=== PATIENT | male | born 1960 | race Caucasian/White ===

== ENCOUNTER 2023-10-14 10:55 | Day surgery (SDC) | payer OTHER ==
[2023-10-14] MEDS: IV FLUID CONTINUATION 1,000 ML IV ONE (11:21)
[2023-10-14 11:33] VITALS: TEMP 98.1
[2023-10-14] MEDS: LACTATED RINGERS 1,000 ML BAG IV STA (11:46)
[2023-10-14] MEDS ORDERED: LIDOCAINE 1% INJ 10MG/ML (20 ML MDV) ONE (11:47)
[2023-10-14] MEDS ORDERED: PROPOFOL 10 MG/ML 20 ML VIAL IV ONE (11:47)
--- NOTE | 2023-10-14 12:04 | P.PCN ---
Date of Procedure: 10/14/23 Procedure(s) Performed: BRIEF HISTORY: Patient is a 63-year-old pleasant white male scheduled for an elective colonoscopy as a part of screening for colon cancer/positive Cologuard. PROCEDURE PERFORMED: Colonoscopy with biopsy and snare polypectomy. PREOPERATIVE DIAGNOSIS: Screening for colon cancer/positive Cologuard. IV sedation per Anesthesia. PROCEDURE: After informed consent was obtained, the patient, was brought into the endoscopy unit. IV sedation was administered by Anesthesia under continuous monitoring. Digital rectal examination was normal. Initially the Olympus CF-160 flexible video colonoscope was then inserted in the rectum, gradually advanced into the cecum without any difficulty. Careful examination was performed as the scope was gradually being withdrawn. Ileocecal valve and the appendiceal orifice were visualized and appeared normal. Prep was excellent. Mucosa of the cecum, normal. On the ileocecal valve there were 2 polyps measuring 3 mm in size both of which were removed by cold biopsy. Rest of the ascending colon, transverse colon, descending colon normal. The distal sigmoid colon 3 was a 3 mm and one 7.5 cm pedunculated polyp removed by cold snare polypectomy. Scattered sigmoid diverticulosis seen., sigmoid colon, and rectum appeared normal. Retroflexion was performed in the rectum and no lesions were seen. The patient tolerated the procedure well. IMPRESSION: 3 mm x 2 polyps and ileocecal valve s/p cold biopsy 3 mm and 1.5 cm pedunculated sigmoid colon polyp status post snare polypectomy Scattered sigmoid diverticulosis. RECOMMENDATIONS: Findings of this examination were discussed with the patient as well as his family. He was advised to follow-up with the biopsy results.. If the biopsy reveals adenoma, he can have repeat colonoscopy in 3 years.
[2023-10-14] MEDS ORDERED: LACTATED RINGERS 1,000 ML IV SCH (12:13)
[2023-10-14 12:38] VITALS: BP 105/58; PULSE 60; RESP 20
== END 2023-10-14 12:46 ==
LOC: ORWHC2ENDO 10:55
PROVIDERS: ATTEND Internal Medicine Gastroenterology
DX: C18.7 Malignant neoplasm of sigmoid colon (principal); D12.5 Benign neoplasm of sigmoid colon; K57.30 Diverticulosis of large intestine without perforation or abscess without bleeding; K52.9 Noninfective gastroenteritis and colitis, unspecified; E03.9 Hypothyroidism, unspecified; Z79.890 Hormone replacement therapy; Z79.899 Other long term (current) drug therapy
CPT/HCPCS: 45380; 45385; 88305; 88341; 88342

== ENCOUNTER → 2023-10-20 | Outpatient (CLI) | payer OTHER ==
--- NOTE | 2023-10-20 17:24 | CT ---
EXAMINATION TYPE: CT abdomen pelvis w con CT DLP: 1684 mGycm, Automated exposure control for dose reduction was used. 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 Contrast used:100 mL of Isovue 300 with IV Contrast, (none if empty) Oral contrast used: with Oral Contrast (none if empty) FINDINGS: LOWER CHEST: 4 mm right middle lobe pulmonary nodule. A 6 mm right lower lobe pulmonary nodule. ABDOMEN LIVER: Diffusely hypoattenuating parenchyma. GALLBLADDER AND BILE DUCTS: Unremarkable. PANCREAS: Unremarkable. SPLEEN: Unremarkable. ADRENAL GLANDS: Unremarkable. KIDNEYS AND URETERS: No evidence of hydronephrosis or renal calculus. The ureters are unremarkable. PELVIS BLADDER: Unremarkable REPRODUCTIVE: Prostate is enlarged in size measuring 5.2 cm in transverse dimension. ABDOMEN & PELVIS STOMACH AND BOWEL: No evidence of bowel obstruction. Scattered colonic diverticula. Appendix is briana l. PERITONEUM/RETROPERITONEUM: No evidence of pneumoperitoneum or free fluid. VASCULATURE: No evidence of aortic aneurysm. MUSCULOSKELETAL: No acute osseous abnormalities LYMPH NODES: No gross evidence for lymphadenopathy. SOFT TISSUE/ABDOMINAL WALL: Left fat-containing inguinal hernia. IMPRESSION: 1. No discrete mass in the colon and visualized. No inflammation related to where this mass was loca remberto. No lymphadenopathy. Few scattered pulmonary nodules that are indeterminate consider short-term f ollow-up. 2. Hepatic steatosis. 3. Prostatomegaly, correlate with serum PSA.
== END | disposition home or self-care (01) ==
LOC: RADCTMAIN 15:04
PROVIDERS: ATTEND Internal Medicine Gastroenterology
DX: C18.7 Malignant neoplasm of sigmoid colon
CPT/HCPCS: 74177

== ENCOUNTER 2023-10-27 10:13 | Day surgery (SDC) | payer OTHER ==
[2023-10-26 10:36] VITALS: BMI 31.5
[~2023-10-27 10:13] MED LIST: LIDOCAINE 1% (10MG/ML) FOR IV START INTRADERMA PRN
[2023-10-27 10:49] VITALS: TEMP 97.2
[2023-10-27] MEDS: IV FLUID CONTINUATION 1,000 ML IV ONE (10:54)
[2023-10-27] MEDS: LACTATED RINGERS 1,000 ML IV SCH (10:54)
[2023-10-27] MEDS ORDERED: PROPOFOL 10 MG/ML 20 ML VIAL IV ONE (12:04)
--- NOTE | 2023-10-27 12:21 | P.PCN ---
Date of Procedure: 10/27/23 Procedure(s) Performed: BRIEF HISTORY: Patient is a 63-year-old pleasant white male scheduled for an elective sigmoidoscopy as a part of follow-up of malignant sigmoid colon polyp that was noted on recent colonoscopy 12 days ago. Patient was noted to have a positive Cologuard and hence underwent a colonoscopy on 10/14/2023. He was noted to have a 1.5 cm pedunculated distal sigmoid polyp that was removed by snare polypectomy. The biopsy of the polyp revealed a malignant sigmoid polyp with adenocarcinoma that was fragmented and as per the pathologist the invasive adenocarcinoma extended to the cauterized margin on one of the fragmented piece and hence can complete resection could not be assessed based on the pathology. He is scheduled for sigmoidoscopy and possible tattoo at the site of polyp resection PROCEDURE PERFORMED: Flexible sigmoidoscopy with snare polypectomy and tattooing with Regina ink. PREOPERATIVE DIAGNOSIS: Follow-up malignant sigmoid colon polyp diagnosed on recent colonoscopy 12 days ago. IV sedation per Anesthesia. PROCEDURE: After informed consent was obtained, the patient, was brought into the endoscopy unit. IV sedation was administered by Anesthesia under continuous monitoring. Digital rectal examination was normal. Initially the Olympus CF-160 flexible video colonoscope was then inserted in the rectum, gradually advanced into the descending colon. Careful examination was performed as the scope was gradually being withdrawn. Scattered left-sided diverticulosis seen. The, descending colon, appeared normal. In the distal sigmoid colon at 28 cm from the anal verge the previous polypectomy site was visualized. There was a 5 to 6 mm stalk identified at the site of polypectomy and this whole area was removed using snare polypectomy. Following this tattooing was performed with Regina ink at the site of polypectomy. Rectum appeared normal. Retroflexion was performed in the rectum and no lesions were seen. The patient tolerated the procedure well. IMPRESSION: 7 mm residual stalk identified at the site of previous polypectomy at 28 cm from the anal verge s/p snare polypectomy of the stalk followed by tattooing with Regina ink Scattered sigmoid diverticulosis. RECOMMENDATIONS: Findings of this examination were discussed with the patient as well as his family. He was advised to follow with the biopsy results and he will be seen in the office in 1 week. Based on the results we will decide further management..
[2023-10-27 12:28] VITALS: RESP 16
[2023-10-27 13:12] VITALS: BP 134/78; PULSE 55
== END 2023-10-27 13:13 | disposition home or self-care (01) ==
LOC: ORWHC2ENDO 10:13
PROVIDERS: ATTEND Internal Medicine Gastroenterology
DX: C18.7 Malignant neoplasm of sigmoid colon (principal); K57.30 Diverticulosis of large intestine without perforation or abscess without bleeding; K63.89 Other specified diseases of intestine; Z86.010 Personal history of colon polyps; G47.33 Obstructive sleep apnea (adult) (pediatric); Z98.890 Other specified postprocedural states; Z85.828 Personal history of other malignant neoplasm of skin; Z79.890 Hormone replacement therapy
CPT/HCPCS: 45335; 45338; 88305